=== PATIENT | female | born 1965 | race African-American/Black ===

== ENCOUNTER 2023-11-04 10:57 | Emergency (ER) | payer OTHER ==
[2023-11-04] MEDS: KETOROLAC 15 MG/ML 1 ML VIAL IM STA (11:52)
[2023-11-04] MEDS: ORPHENADRINE 30 MG/ML 2 ML VIAL IM STA (11:54)
--- NOTE | 2023-11-04 12:17 | ED ---
Back Pain HPI - General Chief Complaint: Back Pain/Injury Stated Complaint: Back/Hips Pain Time Seen by Provider: 11/04/23 11:13 Source: patient, RN notes reviewed Mode of arrival: ambulatory Limitations: no limitations - History of Present Illness Initial Comments: 57-year-old female presents emergency department with chief complaint of low back pain. Patient states been suffering from with this for a while she states that she was seen in [place] by an orthopedic physician and was diagnosed with a slipped disc. Patient states that she did receive an IM injection but states that she was not able to get any further care as her insurance was not accepted at this facility. Patient states she has no pain that rates down her legs denies any focal weakness denies any bowel, bladder encounter tensional abdominal pain she states she does have some right flank pain without urinary symptoms - Related Data Previous Rx's Medication Instructions Recorded Cyclobenzaprine [Flexeril] 10 mg PO TID PRN #15 tab 11/04/23 predniSONE 50 mg PO DAILY #5 tab 11/04/23 Allergies Allergy/AdvReac Type Severity Reaction Status Date / Time No Known Allergies Allergy Verified 11/04/23 11:15 Review of Systems ROS Statement: Those systems with pertinent positive or pertinent negative responses have been documented in the HPI. ROS Other: All systems not noted in ROS Statement are negative. Past Medical History Past Medical History: No Reported History Additional Past Surgical History / Comment(s): eyes Past Psychological History: No Psychological Hx Reported Smoking Status: Current some day smoker Past Alcohol Use History: None Reported Past Drug Use History: None Reported General Exam Limitations: no limitations General appearance: alert, in no apparent distress Head exam: Present: atraumatic, normocephalic, normal inspection Eye exam: Present: normal appearance, PERRL, EOMI. Absent: scleral icterus, conjunctival injection, periorbital swelling Respiratory exam: Present: normal lung sounds bilaterally. Absent: respiratory distress, wheezes, rales, rhonchi, stridor Cardiovascular Exam: Present: regular rate, normal rhythm, normal heart sounds. Absent: systolic murmur, diastolic murmur, rubs, gallop, clicks GI/Abdominal exam: Present: soft, normal bowel sounds. Absent: distended, tenderness, guarding, rebound, rigid Extremities exam: Present: normal inspection, full ROM, normal capillary refill. Absent: tenderness, pedal edema, joint swelling, calf tenderness Back exam: Present: full ROM, tenderness, CVA tenderness (R), muscle spasm, paraspinal tenderness. Absent: vertebral tenderness Course Vital Signs 11/04/23 11/04/23 11:12 13:04 Temperature 97.8 F 98.6 F Pulse Rate 72 82 Respiratory 16 18 Rate Blood Pressure 123/68 128/93 O2 Sat by Pulse 95 97 Oximetry Medical Decision Making - Medical Decision Making Was pt. sent in by a medical professional or institution (, PA, OIL RIGGER, urgent care, hospital, or jail...) When possible be specific @ -No Did you speak to anyone other than the patient for history (EMS, parent, family, police, friend...)? What history was obtained from this source @ -No Did you review nursing and triage notes (agree or disagree)? Why? @ -I reviewed and agree with nursing and triage notes Were old charts reviewed (outside hosp., previous admission, EMS record, old EKG, old radiological studies, urgent care reports/EKG's, jail records)? Report findings @ -No old charts were reviewed Differential Diagnosis (chest pain, altered mental status, abdominal pain women, abdominal pain men, vaginal bleeding, weakness, fever, dyspnea, syncope, headache, dizziness, GI bleed, back pain, seizure, CVA, palpatations, mental health, musculoskeletal)? @ -Differential Back Pain: Strain, zoster, cauda equina syndrome, epidural abscess, vertebral osteomyelitis, discitis, fracture, subluxation, disc herniation, DJD, spinal stenosis, dissection, AAA, pancreatitis, peptic ulcer disease, pyelonephritis, kidney stone, this is not meant to be an all-inclusive list. EKG interpreted by me (3pts min.). @ -None X-rays interpreted by me (1pt min.). @ -None done CT interpreted by me (1pt min.). @ -None done U/S interpreted by me (1pt. min.). @ -None done What testing was considered but not performed or refused? (CT, X-rays, U/S, labs)? Why? @ -[Reviewed image including x-ray, CT patient states she already had this recommend to have MRI will be performed outpatient What meds were considered but not given or refused? Why? @ -None Did you discuss the management of the patient with other professionals (professionals i.e. , PA, OIL RIGGER, lab, RT, psych nurse, social media campaign manager, grab jack man, teacher, privacy officer, case operator)? Give summary @ -No Was smoking cessation discussed for >3mins.? @ -No Was critical care preformed (if so, how long)? @ -No Were there social determinants of health that impacted care today? How? (Homelessness, low income, unemployed, alcoholism, drug addiction, transportation, low edu. Level, literacy, decrease access to med. care, half-way, rehab)? @ -No Was there de-escalation of care discussed even if they declined (Discuss DNR or withdrawal of care, Hospice)? DNR status @ -No What co-morbidities impacted this encounter? (DM, HTN, Smoking, COPD, CAD, Cancer, CVA, ARF, Chemo, Hep., AIDS, mental health diagnosis, sleep apnea, morbid obesity)? @ -None Was patient admitted / discharged? Hospital course, mention meds given and route, prescriptions, significant lab abnormalities, going to OR and other pertinent info. @ -Discharged patient has acute exacerbation of ongoing back pain patient is neurologically intact patient has no red flag symptoms. Patient provided on- call orthopedics. Patient provided analgesics. Undiagnosed new problem with uncertain prognosis? @ -No Drug Therapy requiring intensive monitoring for toxicity (Heparin, Nitro, Insulin, Cardizem)? @ -No Were any procedures done? @ -No Diagnosis/symptom? @ -Low back pain Acute, or Chronic, or Acute on Chronic? @ -Acute Uncomplicated (without systemic symptoms) or Complicated (systemic symptoms)? @ -uncomplicated Side effects of treatment? @ -No Exacerbation, Progression, or Severe Exacerbation? @ -exacerbation Poses a threat to life or bodily function? How? (Chest pain, USA, [place], pneumonia, PE, COPD, DKA, ARF, appy, cholecystitis, CVA, Diverticulitis, Homicidal, Suicidal, threat to staff... and all critical care pts) @ -No - Lab Data Lab Results 11/04/23 Range/Units 11:50 Urine Color Yellow Urine Appearance Cloudy H (Clear) Urine pH 5.5 (5.0-8.0) Ur Specific [place] 1.028 (1.001-1.035) Urine Protein Trace H (Negative) Urine Glucose (UA) Negative (Negative) Urine Ketones Negative (Negative) Urine Blood Negative (Negative) Urine Nitrite Negative (Negative) Urine Bilirubin Negative (Negative) Urine Urobilinogen 2.0 (<2.0) mg/dL Ur Leukocyte Esterase Negative (Negative) Urine RBC 3 (0-5) /hpf Urine WBC 2 (0-5) /hpf Ur Squamous Epith Cells 4 (0-4) /hpf Calcium Oxalate Crystal Few H (None) /hpf Urine Mucus Moderate H (None) /hpf Disposition Clinical Impression: Back pain Disposition: HOME SELF-CARE Condition: Stable Instructions (If sedation given, give patient instructions): Acute Low Back Pain (ED) Additional Instructions: Please return to the Emergency Department if symptoms worsen or any other concerns. Prescriptions: Cyclobenzaprine [Flexeril] 10 mg PO TID PRN #15 tab PRN Reason: Muscle Spasm predniSONE 50 mg PO DAILY #5 tab Is patient prescribed a controlled substance at d/c from ED?: No Referrals: Betty Vizcaino MD [Primary Care Provider] - 1-2 days Steven Oleary DO [Doctor of Osteopathic Medicine] - 1-2 days Time of Disposition: 13:01
[2023-11-04 12:32] LABS: Appearance,Urine Cloudy (Clear); Bilirubin,Urine Negative (Negative); Blood,Urine Negative (Negative); Calcium Oxalate Crystals,Urine Few /hpf; Color,Urine Yellow; Glucose,Urine (UA) Negative (Negative); Ketones,Urine Negative (Negative); Leukocyte Esterase,Urine Negative (Negative); Mucus,Urine Moderate /hpf; Nitrite,Urine Negative (Negative); PH, Urine 5.5 (5.0-8.0); Protein,Urine Trace (Negative); RBC,Urine 3 /hpf (0-5); Specific Gravity,Urine 1.028 (1.001-1.035); Squamous Epithelial Cell,Urine 4 /hpf (0-4); WBC,Urine 2 /hpf (0-5)
[2023-11-04] MEDS: ACET/COD 300 MG/30 MG STARTER PACK 6 TAB BTL PO STA (12:59)
[2023-11-04 13:41] VITALS: BP 128/93; PULSE 82; RESP 18; TEMP 98.6
== END 2023-11-04 13:19 | disposition home or self-care (01) ==
LOC: EC 10:57
DX: M54.50 Low back pain, unspecified (principal); F17.200 Nicotine dependence, unspecified, uncomplicated
CPT/HCPCS: 81001; 99284; 96372 ×2; J2360; J1885

== ENCOUNTER → 2023-11-06 | Outpatient (CLI) | payer OTHER ==
[2023-11-06 22:36] LABS: HIV 2 AB Non-Reactive (Non-Reactive); HIV AB P24 Non-Reactive (Non-Reactive); HIV P24 AG Non-Reactive (Non-Reactive)
[2023-11-07 08:43] LABS: HLA B27 NEGATIVE
[2023-11-07 10:43] LABS: Angiotensin-1 Converting Enz. 22 U/L (8-52)
== END | disposition home or self-care (01) ==
LOC: LABWHC1 12:10
PROVIDERS: ATTEND Ophthalmology
DX: H20.13 Chronic iridocyclitis, bilateral (principal)
CPT/HCPCS: 36415; 82164; 85549; 86480; 86618; 86780; 86812; 87390

== ENCOUNTER → 2023-11-26 | Outpatient (CLI) | payer OTHER ==
--- NOTE | 2023-11-28 13:47 | MM ---
Reason for Exam: Screening (asymptomatic). Patient History: Menarche at age 10. First Full-Term at age 16. Postmenopausal. Risk Values: Berenice 5 year model risk: 1.4%. NCI Lifetime model risk: 7.3%. Prior Study Comparison: No prior studies available for comparison. Tissue Density: There are scattered areas of fibroglandular density. Findings: Analyzed By CAD. There is no suspicious group of microcalcifications or new suspicious mass in either breast. Overall Assessment: Negative, BI-RAD 1 Management: Screening Mammogram of both breasts in 1 year. . Patient should continue monthly self-breast exams. A clinical breast exam by your physician is recommended on an annual basis. This exam should not preclude additional follow-up of suspicious palpable abnormalities. Note on Berenice scores and lifetime risk: 1. A Berenice score greater than 3% is considered moderate risk. If this is the case, consider specialist referral to assess eligibility for a risk reducing agent. 2. If overall lifetime risk for the development of breast cancer is 20% or higher, the patient may qualify for future screening with alternating mammogram and breast MRI. Electronically signed and approved by: Kristian Heard M.D. Radiologis
== END | disposition home or self-care (01) ==
LOC: RADMAMWWP 15:48
PROVIDERS: ATTEND Family Medicine
DX: Z12.31 Encounter for screening mammogram for malignant neoplasm of breast (principal); Z78.0 Asymptomatic menopausal state
CPT/HCPCS: 77067

== ENCOUNTER → 2024-01-06 | Outpatient (CLI) | payer OTHER | END | disposition home or self-care (01) | LOC: RADMRIMAIN 18:52 | PROVIDERS: ATTEND Orthopaedic Surgery | DX: M47.26 Other spondylosis with radiculopathy, lumbar region (principal); M54.50 Low back pain, unspecified ==

== ENCOUNTER 2024-04-21 11:57 | Emergency (ER) | payer OTHER ==
[2024-04-21 12:00] VITALS: TEMP 97.9
[2024-04-21] MEDS: LIDOCAINE 4% PATCH TOPICAL ONE (12:23)
[2024-04-21] MEDS: CYCLOBENZAPRINE 10 MG TAB PO STA (12:24)
[2024-04-21] MEDS: DEXAMETHASONE SOD PHOSPHATE 10 MG/ML 1 ML VIAL IM STA (12:25)
--- NOTE | 2024-04-21 12:26 | ED ---
Back Pain HPI - General Chief Complaint: Extremity Injury, Lower Stated Complaint: hip pain Time Seen by Provider: 04/21/24 12:02 Source: patient, RN notes reviewed Mode of arrival: ambulatory Limitations: no limitations - History of Present Illness Initial Comments: This is a 58-year-old female who presents to the emergency department for lower back pain. Patient has a history of chronic back pain and was previously diagnosed with a slipped disc. States that she is going to end up needing surgery, but is having insurance problems and cannot get this done anytime soon. The pain has been flaring up over the last 2 to 3 days. She has radiation down the right leg. Denies any new injuries or loss of bowel/bladder control or saddle anesthesia. Not currently taking anything for pain management. She was evaluated here several months ago for similar pain and treated with prednisone and Flexeril, which she states was effective. - Related Data Previous Rx's Medication Instructions Recorded Cyclobenzaprine [Flexeril] 10 mg PO TID PRN #15 tab 11/04/23 predniSONE 50 mg PO DAILY #5 tab 11/04/23 Cyclobenzaprine [Flexeril] 10 mg PO TID PRN #30 tab 04/21/24 Lidocaine 5% Patch [Lidoderm] 1 patch TOPICAL DAILY PRN #30 patch 04/21/24 predniSONE 50 mg PO DAILY 5 Days #5 tab 04/21/24 Allergies Allergy/AdvReac Type Severity Reaction Status Date / Time No Known Allergies Allergy Verified 04/21/24 12:00 Review of Systems ROS Statement: Those systems with pertinent positive or pertinent negative responses have been documented in the HPI. ROS Other: All systems not noted in ROS Statement are negative. Past Medical History Past Medical History: No Reported History Additional Past Surgical History / Comment(s): eyes Past Psychological History: No Psychological Hx Reported Smoking Status: Current some day smoker Past Alcohol Use History: None Reported Past Drug Use History: None Reported General Exam Limitations: no limitations General appearance: alert, in no apparent distress Head exam: Present: atraumatic, normocephalic, normal inspection Respiratory exam: Present: normal lung sounds bilaterally. Absent: respiratory distress, wheezes, rales, rhonchi, stridor Cardiovascular Exam: Present: regular rate, normal rhythm, normal heart sounds. Absent: systolic murmur, diastolic murmur, rubs, gallop, clicks Back exam: Present: other (Tenderness to palpation over the right lower back) Neurological exam: Present: alert, oriented X3, CN II-XII intact Psychiatric exam: Present: normal affect, normal mood Skin exam: Present: warm, dry, intact, normal color. Absent: rash Course Vital Signs 04/21/24 11:57 Temperature 97.9 F Pulse Rate 89 Respiratory 16 Rate Blood Pressure 122/76 O2 Sat by Pulse 95 Oximetry Medical Decision Making - Medical Decision Making This is a 58 year old female who presents to the emergency department for back pain. Was pt. sent in by a medical professional or institution? @ -No Did you speak to anyone other than the patient for history? @ -No Did you review nursing and triage notes? @ -Yes, and I agree, it is accurate with regards to the patient's symptoms. Were old charts reviewed? @ -No Differential Diagnosis? @ -Differential Back Pain: Strain, zoster, cauda equina syndrome, epidural abscess, vertebral osteomyelitis, discitis, fracture, subluxation, disc herniation, DJD, spinal stenosis, dissection, AAA, pancreatitis, peptic ulcer disease, pyelonephritis, kidney stone, this is not meant to be an all-inclusive list. EKG interpreted by me (3pts min.)? @ -Not obtained X-rays interpreted by me (1pt min.)? @ -Not obtained CT interpreted by me (1pt min.)? @ -Not obtained U/S interpreted by me (1pt. min.)? @ -Not obtained What testing was considered but not performed? (CT, X-rays, U/S, labs)? Why? @ -None What meds were considered but not given? Why? @ -None Did you discuss the management of the patient with other professionals? @ -No Did you reconcile home meds? @ -No Was smoking cessation discussed for >3mins.? @ -No Was critical care preformed (if so, how long)? @ -No Were there social determinants of health that impacted care today? How? (Homelessness, low income, unemployed, alcoholism, drug addiction, transportation, low edu. Level, literacy, decrease access to med. care, retirement, rehab)? @ -No Was there de-escalation of care discussed even if they declined? (Discuss DNR or withdrawal of care, Hospice)? @ -No What co-morbidities impacted this encounter? (DM, HTN, Smoking, COPD, CAD, Cancer, CVA, Hep., AIDS, mental health diagnosis, sleep apnea, morbid obesity)? @ -None Was patient admitted / discharged? @ -Discharged. Patient experiencing a lumbar radiculopathy/sciatica, and is having an exacerbation of her chronic back pain. Given that this is a chronic problem and she had no new injuries, no imaging was performed. She had no red flag signs or symptoms such as loss of bowel/bladder control or saddle anesthesia. Pain was treated in the emergency department. Prescription for prednisone, Flexeril, and lidocaine patches provided. Patient discharged home in stable condition. She will follow-up with her mri specialist and primary care provider. Case discussed with ED attending Dr. Blackman. Return precautions reviewed in depth, the patient is instructed to return to the emergency department with any new, worsening, or concerning symptoms. Patient verbalized understanding. Undiagnosed new problem with uncertain prognosis? @ -None Drug Therapy requiring intensive monitoring for toxicity (Heparin, Nitro, Insulin, Cardizem)? @ -None Were any procedures done? @ -None Diagnosis/symptom? @ -Right lumbar radiculopathy/back pain Acute, or Chronic, or Acute on Chronic? @ -Acute on chronic Uncomplicated (without systemic symptoms) or Complicated (systemic symptoms)? @ -Uncomplicated Side effects of treatment? @ -None Exacerbation, Progression, or Severe Exacerbation] @ -Exacerbation Poses a threat to life or bodily function? @ -The pain is limiting her ability to function to some extent. Disposition Clinical Impression: Lumbar radiculopathy, right Disposition: HOME SELF-CARE Instructions (If sedation given, give patient instructions): Lumbar Radiculopathy (ED) Additional Instructions: Return to the emergency department with any new, worsening, or concerning symptoms. Take the prednisone daily for 5 days. Take the Flexeril up to 3 times daily. You can also apply the lidocaine patches daily. Follow up with your primary care provider in 1-2 days. Prescriptions: Cyclobenzaprine [Flexeril] 10 mg PO TID PRN #30 tab PRN Reason: Pain Lidocaine 5% Patch [Lidoderm] 1 patch TOPICAL DAILY PRN #30 patch PRN Reason: Pain predniSONE 50 mg PO DAILY 5 Days #5 tab Is patient prescribed a controlled substance at d/c from ED?: No Referrals: Betty Vizcaino MD [Primary Care Provider] - 1-2 days Time of Disposition: 12:26
[2024-04-21] MEDS: KETOROLAC 15 MG/ML 1 ML VIAL IM STA (12:27)
[2024-04-21] MEDS: traMADol 50 MG STARTER PACK 3 TAB BTL PO STA (12:33)
[2024-04-21] MEDS: MORPHINE SULFATE 4 MG/ML SYRINGE IM STA (12:34)
[2024-04-21 12:47] VITALS: BP 118/76; PULSE 81; RESP 18
== END 2024-04-21 12:47 | disposition home or self-care (01) ==
LOC: EC 11:57
CPT/HCPCS: 96372; 99283

== ENCOUNTER 2024-06-23 15:27 | Emergency (ER) | payer OTHER ==
[2024-06-23 15:35] VITALS: RESP 18; TEMP 98
[2024-06-23] MEDS: KETOROLAC 15 MG/ML 1 ML VIAL IM STA (16:01)
[2024-06-23] MEDS: methylPREDNISolone SOD SUCCI 125 MG/2 ML VIAL IM ONE (16:01)
[2024-06-23] MEDS: LIDOCAINE 4% PATCH TOPICAL ONE (16:02)
--- NOTE | 2024-06-23 16:09 | ED ---
General Adult HPI - General Chief complaint: Back Pain/Injury Stated complaint: R leg pain Time Seen by Provider: 06/23/24 15:42 Source: patient, RN notes reviewed, old records reviewed Mode of arrival: ambulatory Limitations: no limitations - History of Present Illness Initial comments: Patient is a 58-year-old female presents emergency department complaining of right leg pain, lower back pain. Scribes it is pain that shoots from her right buttock down the back of her leg towards her right knee. States she does have a history of a slipped disc as well as bursitis on her right hip. States it feels like combination of both but the pain has been worse over the last few days. Noticed it with walking. Denies any urinary or bowel incontinence or retention. Denies any lower extremity paralysis. Denies any saddle paresthesias. Does state that this time it seems to be somewhat concentrated the back of her right knee which she states is painful. No history of blood clots. No lower extremity edema. No calf pain. Patient has no other acute complaints at this time. Denies shortness of breath or chest pain. Presents for further evaluation. States due to insurance she has not been able to seek further treatment for her orthopedic issues. - Related Data Previous Rx's Medication Instructions Recorded Cyclobenzaprine [Flexeril] 10 mg PO TID PRN #15 tab 11/04/23 predniSONE 50 mg PO DAILY #5 tab 11/04/23 Cyclobenzaprine [Flexeril] 10 mg PO TID PRN #30 tab 04/21/24 Lidocaine 5% Patch [Lidoderm] 1 patch TOPICAL DAILY PRN #30 patch 04/21/24 predniSONE 50 mg PO DAILY 5 Days #5 tab 04/21/24 traMADol HCL 50 mg PO Q6H PRN 3 Days #12 tab 06/23/24 Allergies Allergy/AdvReac Type Severity Reaction Status Date / Time No Known Allergies Allergy Verified 06/23/24 15:32 Review of Systems ROS Statement: Those systems with pertinent positive or pertinent negative responses have been documented in the HPI. Review of Systems: CONST: Denies fever EYES: Denies blurry vision ENT: Denies nasal congestion C/V: Denies Chest pain RESP: Denies shortness of breath GI: Denies abdominal pain : Denies dysuria SKIN: Denies rash. MSK: Endorses back pain, right leg pain NEURO: Denies headache ROS Other: All systems not noted in ROS Statement are negative. Past Medical History Past Medical History: No Reported History Additional Past Surgical History / Comment(s): eyes Past Psychological History: No Psychological Hx Reported Smoking Status: Current some day smoker Past Alcohol Use History: None Reported Past Drug Use History: None Reported General Exam - General Exam Comments Initial Comments: General: Appears in no acute distress. HEAD: Normal with no signs of head trauma. EYES: EOMI. ENT: Hearing grossly intact. RESPIRATORY: No respiratory distress. C/V: Regular rate and rhythm. ABD: Abdomen is nondistended. EXT: Right lumbar spine. Muscle spinal tenderness to palpation. No significant midline lumbar, thoracic, cervical spine tenderness to palpation or step-offs or deformities. No significant right hip tenderness to palpation. No calf edema. Some posterior popliteal space tenderness but no obvious deformity or mass present. Neurovascular intact throughout. Peripheral pulses right lower extremity are 2+. SKIN: No rashes or lesions observed on exposed skin. NEURO: Alert and oriented. Limitations: no limitations Course Vital Signs 06/23/24 06/23/24 06/23/24 15:32 17:30 17:56 Temperature 98 F 98 F 98 F Pulse Rate 96 92 90 Respiratory 18 18 18 Rate Blood Pressure 131/85 141/85 135/78 O2 Sat by Pulse 94 L 96 96 Oximetry Medical Decision Making - Medical Decision Making Was pt. sent in by a medical professional or institution (, PA, DIRECTOR OF FIELD COORDINATION, urgent care, hospital, or [place] [facility] facility...) When possible be specific @ -No Did you speak to anyone other than the patient for history (EMS, parent, family, police, friend...)? What history was obtained from this source @ -No Did you review nursing and triage notes (agree or disagree)? Why? @ -I reviewed and agree with nursing and triage notes Were old charts reviewed (outside hosp., previous admission, EMS record, old EKG, old radiological studies, urgent care reports/EKG's, [place] [facility] facility records)? Report findings @ -No old charts were reviewed Differential Diagnosis (chest pain, altered mental status, abdominal pain women, abdominal pain men, vaginal bleeding, weakness, fever, dyspnea, syncope, headache, dizziness, GI bleed, back pain, seizure, CVA, palpatations, mental health, musculoskeletal)? @ -Differential Musculoskeletal Muscular strain, contusion, ligament sprain, fracture, arthritis, septic arthritis, bursitis, cellulitis, muscle spasm, nerve compression, DVT, arterial occlusion, herpes zoster, electrolyte abnormality, tumor.... This is not meant to be in all inclusive list EKG interpreted by me (3pts min.). @ -None done X-rays interpreted by me (1pt min.). @ -Lumbar spine x-ray reveals no obvious acute process. There is chronic d egeneration as well as mild anterior listhesis at L4-L5 CT interpreted by me (1pt min.). @ -None done U/S interpreted by me (1pt. min.). @ -DVT ultrasound negative for DVT What testing was considered but not performed or refused? (CT, X-rays, U/S, labs)? Why? @ -None What meds were considered but not given or refused? Why? @ -None Did you discuss the management of the patient with other professionals (professionals i.e. , PA, DIRECTOR OF FIELD COORDINATION, lab, RT, psych nurse, school social worker, tax technician, teacher, credit or loans officer, returned case inspector)? Give summary @ -No Was smoking cessation discussed for >3mins.? @ -No Was critical care preformed (if so, how long)? @ -No Were there social determinants of health that impacted care today? How? (Homelessness, low income, unemployed, alcoholism, drug addiction, transport ation, low edu. Level, literacy, decrease access to med. care, alf, rehab)? @ -No Was there de-escalation of care discussed even if they declined (Discuss DNR or withdrawal of care, Hospice)? DNR status @ -No What co-morbidities impacted this encounter? (DM, HTN, Smoking, COPD, CAD, Cancer, CVA, ARF, Chemo, Hep., AIDS, mental health diagnosis, sleep apnea, morbid obesity)? @ -None Was patient admitted / discharged? Hospital course, mention meds given and route, prescriptions, significant lab abnormalities, going to OR and other pertinent info. @ -Based on the patient's presentation and physical exam, presents emergency department complaining of back pain, as well as sciatica type pain in the right leg. Patient is also complaining of some popliteal space discomfort. We will obtain venous duplex ultrasound to evaluate for DVT in the right lower extremity. We also obtain lumbar spine x-rays. Has a history of a known slipped disc in the lumbar spine. Symptoms do seem to be typical for sciatica. No red flag symptoms to suggest cauda equina syndrome at this time. Eitel signs within acceptable limits. Patient will be administered lidocaine patch, IM Toradol, IM Solu-Medrol for analgesia. She was in agreement this plan. Imaging unremarkable. I updated patient and she is feeling improved. Asked for prescription for tramadol for 3 days which will be provided. Strict return precautions discussed. No concern for cauda equina syndrome at this time. I will provide the patient with a prescription for tramadol. I instructed the patient to follow up with their PCP in the next 1-3 days.. I explained that the patient should return to the emergency department if they experience any worsening symptoms. Strict return precautions were discussed with the patient. The patient expressed understanding of these instructions. I answered all questions that the patient had. The patient was discharged home in good condition with their prescriptions and follow up information. Undiagnosed new problem with uncertain prognosis? @ -No Drug Therapy requiring intensive monitoring for toxicity (Heparin, Nitro, Insulin, Cardizem)? @ -No Were any procedures done? @ -No Diagnosis/symptom? @ -Sciatica, chronic back pain Acute, or Chronic, or Acute on Chronic? @ -Acute on chronic Uncomplicated (without systemic symptoms) or Complicated (systemic symptoms)? @ -Uncomplicated Side effects of treatment? @ -None Exacerbation, Progression, or Severe Exacerbation] @ -No Poses a threat to life or bodily function? @ -No Disposition Clinical Impression: Sciatica, Chronic back pain Disposition: HOME SELF-CARE Condition: Good Instructions (If sedation given, give patient instructions): Sciatica (ED), Acute Low Back Pain (ED) Prescriptions: traMADol HCL 50 mg PO Q6H PRN 3 Days #12 tab PRN Reason: Pain Is patient prescribed a controlled substance at d/c from ED?: Yes When asked, does pt state using other controlled substances?: No If prescribed controlled substance>3 days was MAPS reviewed?: Prescribed <3 Days If opioid is for acute pain is fill amount 7 days or less?: Yes Referrals: Betty Vizcaino MD [Primary Care Provider] - 1-2 days Time of Disposition: 17:46
--- NOTE | 2024-06-23 16:39 | XR ---
EXAMINATION TYPE: XR lumbar spine 2 or 3V DATE OF EXAM: 06/23/2024 4:29 PM COMPARISON: None CLINICAL INDICATION: Female, 58 years old with history of eval for injury; TECHNIQUE: XR lumbar spine 2 or 3V - Frontal, lateral and coned in L5-S1 lateral views of the spine. FINDINGS: No evidence of any acute osseous pathology. No evidence of loss of vertebral body height i s seen. There is grade 2 anterolisthesis of L4 and L5 alignment of the lumbar vertebral bodies. Scatt ered disc space narrowing. Multilevel marginal osteophyte formation throughout the visualized spine. There is facet joint arthropathy throughout the spine. Scattered at least mild neural foraminal steno sis. Arthrosis course of the arterial vasculature. IMPRESSION: 1. No acute fracture. 2. Mild multilevel disc degeneration. 3. Grade 2 anterolisthesis of L4 and L5. [facility], , 06/23/2024 4:37 PM
--- NOTE | 2024-06-23 16:52 | US ---
EXAMINATION TYPE: US venous doppler duplex LE RT DATE OF EXAM: 06/23/2024 4:39 PM COMPARISON: NONE CLINICAL INDICATION: Female, 58 years old with history of eval for dvt; No hx of DVT. Patient does no t take blood thinners., Pain. TECHNIQUE: The lower extremity deep venous system is examined utilizing real time linear array sonog adilene with graded compression, color doppler sonography, and spectral doppler. SIDE PERFORMED: Right FINDINGS: VESSELS IMAGED: Common Femoral Vein Deep Femoral Vein Greater Saphenous Vein * Femoral Vein Popliteal Vein Small Saphenous Vein * Proximal Calf Veins (* superficial vessels) Right Leg: No evidence of DVT., Color Doppler imaging shows patency of the vessels. Spectral wavefor ms are within normal limits. IMPRESSION: No ultrasound evidence for deep venous thrombosis. [facility], , 06/23/2024 4:50 PM
[2024-06-23 17:58] VITALS: BP 135/78; PULSE 90
== END 2024-06-23 18:09 | disposition home or self-care (01) ==
LOC: EC 15:27
DX: G89.29 Other chronic pain (principal); M54.41 Lumbago with sciatica, right side; F17.200 Nicotine dependence, unspecified, uncomplicated
CPT/HCPCS: 99284 ×2; 96372 ×3; 72100; 93971; J1885; J2919

== ENCOUNTER 2024-08-05 10:01 | Emergency (ER) | payer OTHER ==
[2024-08-05 10:19] VITALS: RESP 18
[2024-08-05] MEDS: cefTRIAXone 1,000 MG VIAL (IM USE) IM STA (10:25)
--- NOTE | 2024-08-05 10:25 | ED ---
ENT HPI - General Chief complaint: ENT Stated complaint: Sore Throat Time Seen by Provider: 08/05/24 10:21 Source: patient, RN notes reviewed Mode of arrival: ambulatory Limitations: no limitations - History of Present Illness Initial comments: 58-year-old female presenting to the ER chief complaint of dental pain x 3 days. States she has a painful bump in her left lower gums that has grown in size. She states she has a history of dental abscesses. Denies fever, chills. She is able to tolerate orals. Denies any other medical history. - Related Data Previous Rx's Medication Instructions Recorded Cyclobenzaprine [Flexeril] 10 mg PO TID PRN #15 tab 11/04/23 predniSONE 50 mg PO DAILY #5 tab 11/04/23 Cyclobenzaprine [Flexeril] 10 mg PO TID PRN #30 tab 04/21/24 Lidocaine 5% Patch [Lidoderm] 1 patch TOPICAL DAILY PRN #30 patch 04/21/24 predniSONE 50 mg PO DAILY 5 Days #5 tab 04/21/24 traMADol HCL 50 mg PO Q6H PRN 3 Days #12 tab 06/23/24 Acetaminophen Tab [Tylenol Tab] 500 mg PO Q6H PRN #30 tablet 08/05/24 Amoxic-Pot Clav 875-125Mg 1 tab PO Q12HR #20 tab 08/05/24 [Augmentin 875-125] Allergies Allergy/AdvReac Type Severity Reaction Status Date / Time No Known Allergies Allergy Verified 08/05/24 10:05 Review of Systems ROS Statement: Those systems with pertinent positive or pertinent negative responses have been documented in the HPI. ROS Other: All systems not noted in ROS Statement are negative. Past Medical History Past Medical History: No Reported History Additional Past Surgical History / Comment(s): eyes Past Psychological History: No Psychological Hx Reported Smoking Status: Current some day smoker Past Alcohol Use History: None Reported Past Drug Use History: None Reported General Exam Limitations: no limitations General appearance: alert, in no apparent distress Head exam: Present: atraumatic, normocephalic, normal inspection Eye exam: Present: normal appearance, PERRL, EOMI. Absent: scleral icterus, conjunctival injection, periorbital swelling ENT exam: Present: mucous membranes moist, other (Fluctuant, erythematous pea- sized mass present left lower gingiva) Neck exam: Present: normal inspection. Absent: tenderness, meningismus, lymphadenopathy Respiratory exam: Present: normal lung sounds bilaterally. Absent: respiratory distress, wheezes, rales, rhonchi, stridor Cardiovascular Exam: Present: regular rate, normal rhythm, normal heart sounds. Absent: systolic murmur, diastolic murmur, rubs, gallop, clicks Neurological exam: Present: alert, oriented X3 Psychiatric exam: Present: normal affect, normal mood Skin exam: Present: warm, dry, intact, normal color. Absent: rash Course Vital Signs 08/05/24 10:03 Temperature 97.9 F Pulse Rate 65 Respiratory 18 Rate Blood Pressure 156/106 O2 Sat by Pulse 92 L Oximetry Procedures - Incision & Drainage Consent Obtained: verbal consent Indication: Dental abscess Site: oral Size (cm): 2 Culture Obtained?: No Patient Tolerated Procedure: well, no complications Medical Decision Making - Medical Decision Making Was pt. sent in by a medical professional or institution (, PA, SUPERVISOR ROUGH END, urgent care, hospital, or [facility]...) When possible be specific @ -No Did you speak to anyone other than the patient for history (EMS, parent, family, police, friend...)? What history was obtained from this source @ -No Did you review nursing and triage notes (agree or disagree)? Why? @ -I reviewed and agree with nursing and triage notes Were old charts reviewed (outside hosp., previous admission, EMS record, old EKG, old radiological studies, urgent care reports/EKG's, [facility] records)? Report findings @ -No old charts were reviewed Differential Diagnosis (chest pain, altered mental status, abdominal pain women, abdominal pain men, vaginal bleeding, weakness, fever, dyspnea, syncope, headache, dizziness, GI bleed, back pain, seizure, CVA, palpatations, mental health, musculoskeletal)? @ -Dental abscess, dental infection, gingivitis, Justice's angina EKG interpreted by me (3pts min.). @ -None X-rays interpreted by me (1pt min.). @ -None done CT interpreted by me (1pt min.). @ -None done U/S interpreted by me (1pt. min.). @ -None done What testing was considered but not performed or refused? (CT, X-rays, U/S, l abs)? Why? @ -None What meds were considered but not given or refused? Why? @ -None Did you discuss the management of the patient with other professionals (professionals i.e. , PA, SUPERVISOR ROUGH END, lab, RT, psych nurse, clinical social work therapist, lead printer, teacher, aeronautical engineering officer, outpatient case manager)? Give summary @ -No Was smoking cessation discussed for >3mins.? @ -No Was critical care preformed (if so, how long)? @ -No Were there social determinants of health that impacted care today? How? (Homelessness, low income, unemployed, alcoholism, drug addiction, transportation, low edu. Level, literacy, decrease access to med. care, residential, rehab)? @ -No Was there de-escalation of care discussed even if they declined (Discuss DNR or withdrawal of care, Hospice)? DNR status @ -No What co-morbidities impacted this encounter? (DM, HTN, Smoking, COPD, CAD, Cancer, CVA, ARF, Chemo, Hep., AIDS, mental health diagnosis, sleep apnea, morbid obesity)? @ -None Was patient admitted / discharged? Hospital course, mention meds given and route, prescriptions, significant lab abnormalities, going to OR and other pertinent info. @ -Discharge. 58-year-old female presents for dental pain x 3 days. On examination, there is a pea-sized abscess present in oral cavity. I&D was successfully performed. Patient was provided with 1 dose of Rocephin and was prescribed Augmentin. Appropriate return precautions and follow-up care with rachael bae discussed. Case was discussed with the ED attending Dr. Blackman Undiagnosed new problem with uncertain prognosis? @ -No Drug Therapy requiring intensive monitoring for toxicity (Heparin, Nitro, Insulin, Cardizem)? @ -No Were any procedures done? @ -Yes, incision and drainage of dental abscess Diagnosis/symptom? @ -Dental abscess Acute, or Chronic, or Acute on Chronic? @ -Acute Uncomplicated (without systemic symptoms) or Complicated (systemic symptoms)? @ -Uncomplicated Side effects of treatment? @ -No Exacerbation, Progression, or Severe Exacerbation? @ -No Poses a threat to life or bodily function? How? (Chest pain, USA, CT, pneumonia, PE, COPD, DKA, ARF, appy, cholecystitis, CVA, Diverticulitis, Homicidal, Suicidal, threat to staff... and all critical care pts) @ -No Disposition Clinical Impression: Dental abscess Disposition: HOME SELF-CARE Condition: Stable Instructions (If sedation given, give patient instructions): Dental Abscess (ED) Additional Instructions: Take Augmentin twice daily for 10 days. Apply warm compresses to affected area. Take Tylenol as needed for pain. Follow-up with dentist as discussed. Please return to the Emergency Department if symptoms worsen or any other concerns. Prescriptions: Amoxic-Pot Clav 875-125Mg [Augmentin 875-125] 1 tab PO Q12HR #20 tab Acetaminophen Tab [Tylenol Tab] 500 mg PO Q6H PRN #30 tablet PRN Reason: Pain Is patient prescribed a controlled substance at d/c from ED?: No Referrals: Betty Vizcaino MD [Primary Care Provider] - 1-2 days Time of Disposition: 10:49
[2024-08-05] MEDS: ACETAMINOPHEN TAB 500 MG TAB PO STA (10:26)
[2024-08-05] MEDS: LIDOCAINE 1% INJ 10MG/ML (20 ML MDV) SQ ONE (10:28)
[2024-08-05 10:56] VITALS: BP 138/91; PULSE 78; TEMP 98.1
== END 2024-08-05 10:59 | disposition home or self-care (01) ==
LOC: EC 10:01
DX: K04.7 Periapical abscess without sinus (principal); F17.200 Nicotine dependence, unspecified, uncomplicated
CPT/HCPCS: 99283; 96372; 41800; J2003; J0696

== ENCOUNTER 2024-12-13 09:28 | Day surgery (SDC) | payer OTHER ==
[~2024-12-13 09:28] MED LIST: ALPRAZolam 0.25 MG TAB PO PRN; ALPRAZolam 0.5 MG TAB PO PRN; NITROGLYCERIN SL TABS 0.4 MG TAB SUBLINGUAL PRN
[2024-12-13] MEDS: IV FLUID CONTINUATION 1,000 ML IV ONE ×2 (09:39→10:59)
[2024-12-13] MEDS: ASPIRIN 325 MG TAB PO ONE (10:03)
[2024-12-13] MEDS: SODIUM CHLORIDE 0.9% 1,000 ML in EMPTY BAG 1 BAG IV SCH (10:03)
[2024-12-13 10:11] LABS: Basophils # (A) 0.02 10*3/uL (0.00-0.10); Basophils % (A) 0.5 %; Eosinophils # (A) 0.05 10*3/uL (0.04-0.35); Eosinophils % (A) 1.2 %; HGB 15.2 g/dL (12.0-15.0); Lymphocytes # (A) 1.16 10*3/uL (0.90-5.00); Lymphocytes % (A) 28.6 %; MCH 32.3 pg (27.0-32.0); MCHC 33.8 g/dL (32.0-37.0); MCV 95.5 fL (80.0-97.0); Monocytes # (A) 0.53 10*3/uL (0.20-1.00); Monocytes % (A) 13.1 %; Neutrophils # (A) 2.29 10*3/uL (1.80-7.70); Neutrophils % (A) 56.4 %; Platelet Count 191 10*3/uL (140-440); RBC 4.71 10*6/uL (4.10-5.20); RDW 13.6 % (11.5-14.5); WBC 4.06 10*3/uL (4.50-10.00)
[2024-12-13 10:12] VITALS: RESP 16; TEMP 98
[2024-12-13 10:23] LABS: African American GFR (CKD) >90 (>60 ml/min/1.73 sqM); Anion Gap 8 mmol/L; Blood Urea Nitrogen 17 mg/dL (7-17); Calcium 9.9 mg/dL (8.4-10.2); Carbon Dioxide 24 mmol/L (22-30); Chloride 107 mmol/L (98-107); Glucose 112 mg/dL (74-99); Non-African American GFR(CKD) 79 (>60 ml/min/1.73 sqM); Potassium 4.3 mmol/L (3.5-5.1); Sodium 139 mmol/L (137-145)
[2024-12-13] MEDS: HEPARIN SODIUM,PORCINE 10,000 UNIT in SODIUM CHLORIDE 0.9% 1,000 ML IRRIGATION PRN (10:59)
[2024-12-13] MEDS: HEPARIN SODIUM,PORCINE (1 ML) 2,500 UNIT in SODIUM CHLORIDE 0.9% 250 ML IRRIGATION PRN (10:59)
[2024-12-13] MEDS: BENZOCAINE SPRAY 1 EACH MM ONE (11:05)
[2024-12-13] MEDS: fentaNYL (PF) 50 MCG/ML 2 ML AMP IVP ONE (11:06)
[2024-12-13] MEDS: MIDAZOLAM 2 MG/2 ML VIAL IVP ONE (11:06)
[2024-12-13] MEDS: LIDOCAINE 1% INJ 10MG/ML (20 ML MDV) SQ ONE ×2 (11:23)
[2024-12-13] MEDS: VERAPAMIL SYRINGE (5 MG/10 ML) INTRAARTER ONE (11:27)
[2024-12-13] MEDS: HEPARIN SODIUM 1,000 UN/ML (10ML VL) IV ONE (11:35)
[2024-12-13] MEDS: IOPAMIDOL-300 100ML BTL INJ ONE (11:45)
[2024-12-13 12:17] LABS: O2 Sat Blood Gas 80.8 %
[2024-12-13 12:18] LABS: O2 Sat Blood Gas 78.3 %
[2024-12-13] MEDS ORDERED: RX INFO: IV CONTRAST WAS GIVEN 1 EACH MISC MISCELLANE PRN (12:20)
[2024-12-13] MEDS: SODIUM CHLORIDE 0.9% 1,000 ML IV SCH (12:30)
[2024-12-13 14:28] VITALS: BP 147/97; PULSE 77
--- NOTE | 2024-12-14 10:16 | CC ---
CARDIAC CATHETERIZATION REPORT INDICATION: Pulmonary hypertension and mitral regurgitation. PROCEDURE NOTE: After obtaining informed consent, left heart catheterization and coronary angiogram were performed via the right radial artery using standard Catrina catheters. The patient tolerated the procedure well without any obvious immediate complications. The patient received moderate conscious sedation. Total sedation time was 28 minutes. Right radial artery access was obtained using Seldinger technique, 6-Kyrgyz sheath was placed. Catheters and wires were floated into the ascending aorta under fluoroscopic guidance. The patient received verapamil and heparin per protocol. A TR band will be used for hemostasis. FINDINGS: 1. Hemodynamics: Left ventricular end-diastolic pressure is 8 to 10 mm. There is no significant gradient across the aortic valve. 2. Left ventriculogram: Left ventriculogram is performed an TAIWANESE position, shows normal left ventricular size and systolic function. There is 3+ mitral regurgitation noted. 3. Angiographic data: a. Right coronary artery shows mild nonobstructive disease. b.Left main coronary artery is a normal-sized vessel and is free of stenosis. Divides into left anterior descending coronary artery and circumflex coronary artery. c. LAD and its branches show mild nonobstructive disease. d.Circumflex coronary artery shows a 40% to 50% stenosis in the proximal portion. CONCLUSION: 1. Mild nonobstructive disease involving circumflex coronary artery. 2. 3+ mitral regurgitation. PLAN: I will seek opinion from CT Surgery regarding mitral regurgitation and ASD. GIANLUCA / IJN: [id number] /
--- NOTE | 2024-12-14 12:30 | ECHOT ---
TRANSESOPHAGEAL ECHOCARDIOGRAM INDICATIONS: Pulmonary hypertension. PROCEDURE NOTE: After obtaining informed consent, transesophageal echocardiogram was performed in left lateral position using an Omniplane probe. Local and IV sedation were obtained using Xylocaine spray, fentanyl, and Versed. Total sedation time was 10 minutes. FINDINGS: Mitral valve appears anatomically normal. There seems to be moderate eccentric jet of mitral regurgitation. Left atrium appears enlarged. Right atrium has normal size. Right ventricle appears mildly enlarged. Left ventricle has normal size and systolic function. Tricuspid valve shows mild tricuspid regurgitation. Interatrial septum: There is bidirectional shunt with a 1.4 cm septum secundum atrial septal defect. Aortic root appears normal. There is no evidence of aortic stenosis or regurgitation. CONCLUSIONS: 1. Large septum secundum atrial septal defect, moderate eccentric jet of mitral regurgitation. Normal LV systolic function. 2. The technologist did not acquire all the images. Technologist is inexperienced. MMODL / IJN: [id number] /
== END 2024-12-13 16:40 | disposition home or self-care (01) ==
LOC: CATHCVL 09:28
PROVIDERS: ATTEND Internal Medicine Cardiovascular Disease
DX: I27.20 Pulmonary hypertension, unspecified (principal); I34.0 Nonrheumatic mitral (valve) insufficiency; I10 Essential (primary) hypertension
CPT/HCPCS: 93312; 93320; 93325; 80048; 85018; 82810; 85025; 93458; J2250; J1644 ×3; J2003; J3010; Q9967